=== PATIENT | female | born 1995 | race African-American/Black ===

== ENCOUNTER 2024-07-24 12:45 | Outpatient (CLI) | payer OTHER, SELFPAY ==
--- NOTE | ~2024-07-24 | US_ITS ---
Pelvic ultrasound. Clinical History: First trimester , establish dates and viability Technique: Realtime transabdominal and transvaginal scanning of the pelvis was performed. Color flow Doppler and Doppler spectral analysis were performed. Findings: The uterus is anteverted, and contains an intrauterine gestation. [place]-rump length of 2.5 cm corresponds to an estimated gestational age of 9 weeks 2 days. heart rate is 167 bpm. Neither ovary seen. No adnexal mass seen. There is no evidence of free fluid in the cul de sac. Impression: Live intrauterine gestation, with estimated gestational age of 9 weeks 2 days. heart rate is 16 7 bpm. Sonographic EVI is 02/24/2025. Reviewed, dictated and finalized at location . H POLISHER Impression: Live intrauterine gestation, with estimated gestational age of 9 weeks 2 days. heart rate is 167 bpm. Sonographic EVI is 02/24/2025.
== END 2024-07-24 12:46 | disposition home or self-care (01) ==
LOC: MICIMG 12:46
PROVIDERS: PCP Nurse Practitioner Women's Health; Visit Provider Nurse Practitioner Women's Health
DX: O36.80X0 Pregnancy with inconclusive fetal viability, not applicable or unspecified (principal); Z3A.09 9 weeks gestation of pregnancy
CPT/HCPCS: 76801

== ENCOUNTER 2024-10-09 11:04 | Outpatient (CLI) | payer OTHER, SELFPAY ==
--- NOTE | ~2024-10-09 | US_ITS ---
EXAMINATION: US OB /maternal detail DATE: 10/09/2024 11:57 INDICATION: survey TECHNIQUE: Multiple obstetric sonographic images performed. FINDINGS: No prior studies for comparison. There is a single living fetus in variable presentation. The placenta is posterior without placenta previa. Placental margin to the cervix is 3.3 cm. Amniotic fluid volume is subjectively normal cardiac activity and movement is noted with a heart rate of 133 beats per minute. The following anatomy was identified as normal: 4 chamber heart 3 vessel cord cord insertion kidneys urinary bladder stomach spine diaphragm ventricles cisterna magna cerebellum The following biometric data were obtained: BPD: 48mm corresponds to gestational age 20 weeks 3 days. Head circumference: 180 mm corresponds to gestational age 20 weeks 3 days. Abdominal circumference: 159 mm corresponds to gestational age 21 weeks 0 days. Femur length: 34 mm corresponds to gestational age 20 weeks 6 days. Head circumference to abdominal circumference ratio: 1.13 (normal range for expected gestational age is 1.06-1.25). Estimated weight: 383 grams +/- 57 grams using Hadlock method, 77.9%. IMPRESSION: 1: Single living intrauterine with an estimated gestational age of 20weeks 2days by initial ultrasound measurements, with an EDC of 02/24/2025 in variable presentation. Appropriate interval fet al growth. 2. Normal survey. Reviewed, dictated and finalized at location A. IMPRESSION: 1: Single living intrauterine with an estimated gestational age of 20 weeks 2days by initial ultrasound measurements, with an EDC of 02/24/2025 in juanjose iable presentation. Appropriate interval growth. 2. Normal survey.
== END 2024-10-09 11:05 | disposition home or self-care (01) ==
LOC: MICIMG 11:06
PROVIDERS: PCP Obstetrics & Gynecology Gynecology; Visit Provider Obstetrics & Gynecology Gynecology
DX: Z36.2 Encounter for other antenatal screening follow-up (principal); Z3A.20 20 weeks gestation of pregnancy
CPT/HCPCS: 76805

== ENCOUNTER 2024-12-27 09:43 | Outpatient (CLI) | payer OTHER, SELFPAY ==
--- NOTE | ~2024-12-27 | US_ITS ---
EXAMINATION: US OB follow up DATE: 12/27/2024 10:22 INDICATION: Size greater than dates. TECHNIQUE: Real-time transabdominal obstetric ultrasound. FINDINGS: Comparison to prior ultrasounds dated 10/09/2024 and 07/24/2024 There is a single living fetus in vertex presentation. The placenta is posterior without placenta pr evia. cardiac activity and movement is noted with a heart rate of 151 beats per minute. T he amniotic fluid volume is normal. THERESE measures 18.5 cm. The following biometric data were obtained: BPD: 82mm corresponds to gestational age 32 weeks 5 days. Head circumference: 292mm corresponds to gestational age 32 weeks 1 days. Abdominal circumference: 282mm corresponds to gestational age 32 weeks 1 days. Femur length: 62mm corresponds to gestational age 32 weeks 2 days. Estimated weight: 1942grams +/- 291grams 62.7%. IMPRESSION: 1. Single living intrauterine in vertex presentation with an estimated gestational age of 31 weeks 4 days by inititial ultrasound. Appropriate interval growth. 2. Normal placenta. Reviewed, dictated and finalized at location A. IMPRESSION: 1. Single living intrauterine in vertex presentation with an estimat ed gestational age of 31 weeks 4 days by inititial ultrasound. Appropriate int erval growth. 2. Normal placenta.
== END 2024-12-27 09:44 | disposition home or self-care (01) ==
LOC: MICIMG 09:43
PROVIDERS: PCP Obstetrics & Gynecology Gynecology; Visit Provider Obstetrics & Gynecology Gynecology
DX: O36.63X0 Maternal care for excessive fetal growth, third trimester, not applicable or unspecified (principal); Z3A.31 31 weeks gestation of pregnancy
CPT/HCPCS: 76816

== ENCOUNTER 2025-01-29 13:19 | Outpatient (CLI) | payer OTHER, SELFPAY ==
--- NOTE | ~2025-01-29 | US_ITS ---
EXAMINATION: US OB follow up DATE: 01/29/2025 13:43 INDICATION: Size greater than dates. TECHNIQUE: Real-time transabdominal obstetric ultrasound. FINDINGS: Comparison to multiple prior studies sequentially, with oldest reviewed study dated 07/24/2024. There is a single living fetus in vertex presentation. The placenta is fundal without placenta previa. cardiac activity and movement is noted with a heart rate of 147 beats per minute. The amniotic fluid volume is normal. THERESE measures 15.1 cm The following biometric data were obtained: BPD: 89mm corresponds to gestational age 36 weeks 1 days. Head circumference: 320mm corresponds to gestational age 36 weeks 1 days. Abdominal circumference: 333mm corresponds to gestational age 37 weeks 1 days. Femur length: 71mm corresponds to gestational age 36 weeks 2 days. Estimated weight: 3017grams +/- 452grams, 65.1%.] IMPRESSION: 1. Single living intrauterine in vertex presentation with an estimated gestational age of 36 weeks 2 days by inititial ultrasound. Appropriate interval growth. 2. Normal placenta. 3: Normal THERESE measures 15.1 cm. Reviewed, dictated and finalized at location O. IMPRESSION: 1. Single living intrauterine in vertex presentation with an estimat ed gestational age of 36 weeks 2 days by inititial ultrasound. Appropriate int erval growth. 2. Normal placenta. 3: Normal THERESE measures 15.1 cm.
== END 2025-01-29 13:20 | disposition home or self-care (01) ==
LOC: MICIMG 13:20
PROVIDERS: PCP Internal Medicine; Visit Provider Nurse Practitioner
DX: O36.63X0 Maternal care for excessive fetal growth, third trimester, not applicable or unspecified (principal); Z3A.36 36 weeks gestation of pregnancy
CPT/HCPCS: 76816

== ENCOUNTER 2025-02-15 13:00 | Inpatient (IN) | payer OTHER, SELFPAY ==
[2025-02-15] VITALS (143 sets, daily range): BP systolic 67–149; BP diastolic 15–112; PULSE 76–246; RESP 18; TEMP 36.5–37.5; O2SAT 63–100; BMI 38.2
[2025-02-15] MEDS: ONDANSETRON INJ 4 MG/2 ML VIAL IV PUSH (15:57)
[2025-02-15 15:58] LABS: Hematocrit 39.2 % (37.0-47.0); Hemoglobin 13.4 g/dL (12.0-15.0); Immature Granulocyte Percent A 0.8 % (0-0.5); Lymphocytes Absolute Auto 1.86 K/mm3 (0.9-3.2); Mean Corpuscular HGB Conc 34.2 g/dl (32-36); Mean Corpuscular Hemoglobin 30.5 pg (26-34); Mean Corpuscular Volume 89.1 fl (80-100); Nucleated Red Blood Cells Absolute Auto 0.000 K/mm3 (0.0-0.012); Nucleated Red Blood Cells Perc 0.0 % (0.0-0.2); Platelet Count Result 209 k/mm3 (150-375); Red Blood Count 4.40 M/mm3 (4.2-5.4); White Blood Count 11.6 K/mm3 (4.5-10.0)
[2025-02-15] MEDS: fentaNYL CITRATE INJ (*CRX) 100 MCG/2 ML VIAL IV PUSH (16:00)
[2025-02-15] MEDS: LACTATED RINGERS 1,000 ML 125 ML IV CONT ×3 (16:04→18:14)
--- NOTE | 2025-02-15 16:09 | LDADM ---
This patient, Gayathri Mendoza , was admitted to Labor/Delivery/Recovery 106 on 02/15/25 at 13:00. Plans for labor, pain management and were discussed with patient. Patient/family oriented to hospital policies and general routines including ID bracelet, bed and alarms, visiting hours, pain management, procedures, bathroom and other care routines, personal items, smoking policy, room service/diet and guest tray routines, security routines, and visiting hours. Patient/Family are encouraged to report perceived risks to care and to ask questions if they do not understand what they are told or what they should do. See OBIX for further documentation.
[2025-02-15 16:36] LABS: Syphilis IgG/IgM Antibody Non-Reactive (Nonreactive)
--- NOTE | 2025-02-15 16:45 | P.PNAN_ITS ---
Anes - Eval Pre Procedure Procedure: labor pain management Date/Time: 02/15/25 16:45 Surgeon: Selina/Ramakrishna Churchill Preop Diagnosis: pain during labor Pre Op Diagnosis: Labor Patient Data Age: 29 Gender: F Height: 1.57 m Weight: 95 kg Last Vital Signs O2 Del Method Room Air 02/15/25 16:07 Allergies Allergy/AdvReac Type Severity Reaction Status Date / Time No Known Allergies Allergy Verified 01/29/25 11:10 Home Medications ?Medication ?Instructions ?Recorded ?Confirmed ?Type ferrous sulfate 325 mg (65 mg 325 mg PO DAILY 01/07/25 01/26/25 History iron) tablet (Feosol) Held on 01/26/25. Instructions: Order Change vit no.95-ferrous 1 tablet PO DAILY 01/07/25 01/26/25 History fumarate 28 mg-folic acid 800 mcg tablet ( Formula) Laboratory Tests 02/15/25 15:41 WBC 11.6 H K/mm3 (4.5-10.0) RBC 4.40 M/mm3 (4.2-5.4) Hgb 13.4 g/dL (12.0-15.0) Hct 39.2 % (37.0-47.0) MCV 89.1 fl (80-100) MCH 30.5 pg (26-34) MCHC 34.2 g/dl (32-36) RDW 13.3 % (11.5-14.5) Plt Count 209 k/mm3 (150-375) MPV 10.9 H fl (7.4-10.4) Immature Gran % (Auto) 0.8 H % (0-0.5) Neut % (Auto) 79.9 H % (45.5-73.1) Lymph % (Auto) 16.0 L % (18.3-44.2) Price % (Auto) 2.9 % (2.6-8.5) Eos % (Auto) 0.1 % (0-4.4) Baso % (Auto) 0.3 % (0.2-1.2) Lymph # (Auto) 1.86 K/mm3 (0.9-3.2) Price # (Auto) 0.3 K/mm3 (0.1-0.6) Eos # (Auto) 0.0 K/mm3 (0-0.3) Baso # (Auto) 0.0 K/mm3 (0.0-0.1) Abs Immat Gran (auto) 0.09 H K/mm3 (0.00-0.031) Absolute Neuts (auto) 9.3 H K/mm3 (1.3-6.7) Absolute Nucleated RBC 0.000 K/mm3 (0.0-0.012) Nucleated RBC % 0.0 % (0.0-0.2) Syphilis IgG/IgM Ab Non-reactive (Nonreactive) Blood Type O Positive Antibody Screen Negative Patient hx anesthesia problems: none Family hx anesthesia problems: none Results Review: All pre-operative results and documents have been reviewed as part of the pre- operative evaluation. [facility] Family History Family History Mother Diabetes mellitus Sibling Diabetes mellitus Grandparent Diabetes mellitus Other Cancer Social History Social History Smoking status: Never smoker Substance use: never Lack of Transportation: No Lack of Food: Never True Current Housing: I Have Housing Concerned About Future Housing: No Difficulty Paying Gas/Electric Bills: No Difficulty Paying for Meds: No Currently Unemployed: No Education: Bachelor's Degree Difficulty w/ Childcare or Family Care: No Spiritual care concerns: No Exam Day of Procedure 02/15/25 16:45
--- NOTE | 2025-02-15 16:51 | PM.IMHP ---
H&P: HPI History of Present Illness Date/Time: 02/15/25 16:51 Chief Complaint: Labor at term Narrative: 29-year-old 1 para 0 whose last menstrual period gives an EDC of 02/24/2025 confirmed by 12 week ultrasound presents at 38 and half weeks gestation with active labor. Her has been uncomplicated she does suffer from aspect but has not been hospitalized she is negative for group B strep and had a diabetic screen Review of Systems Review of Systems: All systems reviewed & are unremarkable except as noted in HPI and below PMFSH Family History Family History Mother Diabetes mellitus Sibling Diabetes mellitus Grandparent Diabetes mellitus Other Cancer Social History Social History Smoking status: Never smoker Substance use: never Lack of Transportation: No Lack of Food: Never True Current Housing: I Have Housing Concerned About Future Housing: No Difficulty Paying Gas/Electric Bills: No Difficulty Paying for Meds: No Currently Unemployed: No Education: Bachelor's Degree Difficulty w/ Childcare or Family Care: No Spiritual care concerns: No Meds Home Medications and Allergies Home Medications ?Medication ?Instructions ?Recorded ?Confirmed ?Type ferrous sulfate 325 mg (65 mg 325 mg PO DAILY 01/07/25 01/26/25 History iron) tablet (Feosol) Held on 01/26/25. Instructions: Order Change vit no.95-ferrous 1 tablet PO DAILY 01/07/25 01/26/25 History fumarate 28 mg-folic acid 800 mcg tablet ( Formula) Allergies Allergy/AdvReac Type Severity Reaction Status Date / Time No Known Allergies Allergy Verified 01/29/25 11:10 Vital Signs Vital Signs - 24 hr 02/15/25 16:07 02/15/25 16:49 Pulse Rate 83 Blood Pressure 134/81 Pulse Oximetry 96 Oxygen Delivery Room Air Exam Const: General: cooperative, healthy appearing and comfortable Nutritional Appearance: average body habitus Orientation/consciousness: oriented to person, oriented to place and oriented to time HENMT: Head: normal to inspection Resp: Effort & Inspection: normal respiratory effort Cardio: Rate: regular rate Rhythm: regular rhythm Heart sounds: S1 normal heart sound present and S2 normal heart sound present GI: Inspection: normal to inspection (Gravid soft uterus) : External Female Exam: normal external appearance Speculum Exam - Vagina: normal appearance of the vagina Speculum Exam - Cervix: normal appearance of the cervix (Cervix 4/100/2. AROM with meconium. FHTs reassuring) H&P: Results Labs Labs: Short CBC 02/15/25 Range/Units 15:41 WBC 11.6 H (4.5-10.0) K/mm3 Hgb 13.4 (12.0-15.0) g/dL Hct 39.2 (37.0-47.0) % Plt Count 209 (150-375) k/mm3 Assessment and Plan Assessment and plan (1) Term : Code(s): Z34.90 - Encounter for supervision of normal , unspecified, unspecified trimester Status: Acute (2) Anemia affecting : Code(s): O99.019 - Anemia complicating , unspecified trimester Status: Acute Plan Spontaneous vaginal delivery is expected. Epidural anesthesia will be placed. Meconium fluid will be addressed by construction ironworker helper
[2025-02-15] MEDS: PHENYLEPHRINE 1,000 MCG/10 ML SYRINGE 100 MCG IV PUSH ×4 (17:45→18:05)
[2025-02-15] MEDS: OXYTOCIN 30 UNITS/NS 500 ML 30 UNITS/500 ML BAG 999 UNITS IV CONT (21:53)
--- NOTE | 2025-02-15 22:08 | PM.OBPRVD ---
OB - Vaginal Delivery Note Procedure Delivery date: 02/15/25 Induction method: None Delivery augmentation: Rupture of Membranes and Pitocin Delivery monitor: External FHT and External Uterine Route of delivery: Episiotomy description: None Laceration Description: Perineal - 2nd Degree Delivery repair: vicryl Specimen: No Quantitative Blood Loss (ml): 62 Anesthesia type: Epidural Disposition: Floor Complications: No immediate complications Narrative: Patient was admitted at38+ weeks gestation in active labor artificial rupture of membranes was performed the afternoon epidural anesthesia placed she progressed to complete meconium fluid been noted and quality assurance auditor was made aware she pushed delivered the head spontaneously in the MANOJ position anterior posterior shoulder then delivered spontaneously. Cord clamped x2 and cut infant passed off the table with an excellent cry. Placenta delivered intact spontaneously. Twenty of Pitocin placed IV to help firm the uterus after inspecting the vagina small second-degree laceration was noted and this was closed with layered 3-0 Vicryl QBL was 62cc. All sponge, needle, instrument counts were correct. There were no immediate complications [place] Baby Date of : 02/15/25 Time of : 21:53 Gestational Age by Date: 38 gender: Male Weight (pounds): 8 Weight (ounces): 9 position: Right Occiput Anterior Placenta delivery description: Spontaneous Cord Vessel Description: 3 Vessels
--- NOTE | 2025-02-15 22:11 | P.DS_ITS ---
DS: Admitting Diagnosis Discharge Date 02/17/2025 Admitting Diagnosis Term DS: Discharge Diagnosis Discharge Diagnosis (1) Anemia affecting : Code(s): O99.019 - Anemia complicating , unspecified trimester Status: Acute (2) Term : Code(s): Z34.90 - Encounter for supervision of normal , unspecified, unspecified trimester Status: Acute DS: Summary Hospital Course Reason for hospitalization: Patient was admitted on 02/15/2025 and underwent spontaneous vaginal delivery under epidural anesthesia Hospital Course: Patient's hospital course unremarkable. She remained afebrile. She was up, voiding without difficulty, eating regular diet, ambulating, and generally without complaints. Time Spent with Patient Time attestation: Total time spent providing and/or coordinating discharge services: Exam Const: General: cooperative, healthy appearing and comfortable Nutritional Appearance: average body habitus Orientation/consciousness: oriented to person, oriented to place and oriented to time HENMT: Head: normal to inspection Resp: Effort & Inspection: normal respiratory effort Cardio: Rate: regular rate Rhythm: regular rhythm Heart sounds: S1 normal heart sound present and S2 normal heart sound present GI: Inspection: normal to inspection (Gravid soft uterus) : External Female Exam: normal external appearance Speculum Exam - Vagina: normal appearance of the vagina Speculum Exam - Cervix: normal appearance of the cervix (Cervix 4/100/2. AROM with meconium. FHTs reassuring) DS: Data Data Completed and Pending Labs on day of discharge: Labs from last 24 hours 02/15/25 15:41 WBC 11.6 H RBC 4.40 Hgb 13.4 Hct 39.2 MCV 89.1 MCH 30.5 MCHC 34.2 RDW 13.3 Plt Count 209 MPV 10.9 H Immature Gran % (Auto) 0.8 H Neut % (Auto) 79.9 H Lymph % (Auto) 16.0 L [place] % (Auto) 2.9 Eos % (Auto) 0.1 Baso % (Auto) 0.3 Lymph # (Auto) 1.86 [place] # (Auto) 0.3 Eos # (Auto) 0.0 Baso # (Auto) 0.0 Abs Immat Gran (auto) 0.09 H Absolute Neuts (auto) 9.3 H Absolute Nucleated RBC 0.000 Nucleated RBC % 0.0 Syphilis IgG/IgM Ab Non-reactive Blood Type O Positive Antibody Screen Negative Discharge Plan Discharge Attending physician on discharge: Alphonse Riggins Discharging Clinician: Alphonse Riggins Patient Disposition: Home Activity: may shower, no straining and pelvic rest Diet: heart healthy Wound Care Instructions: follow printed instructions Patient Instructions: Antibiotic Form Patient Language: Slovak Stand Alone Forms: General Discharge Information Follow-up/Referrals: Nidhi Marks MD [Physician, ENVIRONMENTAL PROGRAMS MANAGER] Discharge Medications: Continued PNV no.95-ferrous fumarate-FA [ Formula] 28 mg iron- 800 mcg tablet 1 tablet PO DAILY Patient Comments: . ferrous sulfate [Feosol] 325 mg (65 mg iron) tablet 325 mg PO DAILY Patient Comments: .. Rx Instructions: on hold while getting infusions. Date of admission: 02/15/25 13:00 Primary Care Provider: Quan,Eran ([facility]) Admitting Provider: Nidhi Marks Attending physician on admission: Nidhi Marks Condition: Stable
[2025-02-15] MEDS: OXYTOCIN 30 UNITS/NS 500 ML 30 UNITS/500 ML BAG 125 UNITS IV CONT (22:28)
[2025-02-16] VITALS (11 sets, daily range): BP systolic 114–125; BP diastolic 53–73; PULSE 72–106; RESP 14–16; TEMP 36.8–37.1; O2SAT 97–100
[2025-02-16] MEDS: ACETAMINOPHEN 325 MG TABLET 650 MG PO ×3 (00:54→18:54)
[2025-02-16] MEDS: IBUPROFEN 600 MG TABLET PO ×4 (00:55→20:44)
--- NOTE | 2025-02-16 01:15 | OBPPTRN ---
0025 on 02/16/2025 Patient transferred to post room #112 via wheelchair. Support person present. Patient and her significant other were oriented to unit, room, information board, rooming in, admission packet and security measures. Patient verbalizes understanding.
[2025-02-16 05:26] LABS: Hematocrit 29.1 % (37.0-47.0); Hemoglobin 9.9 g/dL (12.0-15.0)
[2025-02-16] MEDS: MULTIVIT/MIN/PREN/FOL AC/IRON TABLET 1 TAB PO (08:06)
[2025-02-16] MEDS: DOCUSATE SODIUM 100 MG CAPSULE PO ×2 (08:06→17:27)
--- NOTE | 2025-02-16 08:40 | P.PNOB_ITS ---
OB - PN: Subj Subjective Date/time seen: 02/16/25 08:40 Patient comments: no complaints, pain well controlled and tolerating diet [place] baby status: doing well and nursing well OB - PN: Obj Data Labs 02/16/25 05:01 Labs: Laboratory Results - last 24 hr 02/15/25 02/16/25 15:41 05:01 WBC 11.6 H RBC 4.40 Hgb 13.4 9.9 L D Hct 39.2 29.1 L MCV 89.1 MCH 30.5 MCHC 34.2 RDW 13.3 Plt Count 209 MPV 10.9 H Immature Gran % (Auto) 0.8 H Neut % (Auto) 79.9 H Lymph % (Auto) 16.0 L [place] % (Auto) 2.9 Eos % (Auto) 0.1 Baso % (Auto) 0.3 Lymph # (Auto) 1.86 [place] # (Auto) 0.3 Eos # (Auto) 0.0 Baso # (Auto) 0.0 Abs Immat Gran (auto) 0.09 H Absolute Neuts (auto) 9.3 H Absolute Nucleated RBC 0.000 Nucleated RBC % 0.0 Syphilis IgG/IgM Ab Non-reactive Blood Type O Positive Antibody Screen Negative OB - PN A/P Assessment and Plan (1) Anemia affecting : Code(s): O99.019 - Anemia complicating , unspecified trimester Status: Acute (2) Term : Code(s): Z34.90 - Encounter for supervision of normal , unspecified, unspecified trimester Status: Acute Plan routine care Time Spent With Patient Time: Total time spent is greater than 50% in coordination of care (as documented) at patient's floor/unit and/or counseling patient: Review of Systems 2 Review of Systems: All systems reviewed & are unremarkable except as noted in HPI and below Exam 2 Const: General: cooperative, healthy appearing and comfortable Nutritional Appearance: average body habitus Orientation/consciousness: oriented to person, oriented to place and oriented to time HENMT: Head: normal to inspection Resp: Effort & Inspection: normal respiratory effort Cardio: Rate: regular rate Rhythm: regular rhythm Heart sounds: S1 normal heart sound present and S2 normal heart sound present GI: Inspection: normal to inspection (Gravid soft uterus) : External Female Exam: normal external appearance Speculum Exam - Vagina: normal appearance of the vagina Speculum Exam - Cervix: normal appearance of the cervix (Cervix 4/100/2. AROM with meconium. FHTs reassuring)
--- NOTE | 2025-02-16 17:31 | PC.NURSE ---
1710. Nipple shield provided to mother due to difficulty latching and mom with flat nipples. Reviewed good handwashing, cleaning the nipple shield and the appropriate way to apply and use as a tool. Discussed with mom the nipple shield precautions, possible complications associated with the risks and benefits. Reviewed practicing with a nipple shield, then without and how to protect the milk supply and production. Mom and baby guide referred to as a resource for outpatient services, community resources and when to call a provider. Mom voiced understanding of the importance of hand expression, nipple stimulation and initiating a pumping schedule if continues to nurse with the shield. Reported to the Primary RN.
[2025-02-17] MEDS: ACETAMINOPHEN 325 MG TABLET 650 MG PO ×2 (03:07→10:52)
--- NOTE | 2025-02-17 05:09 | P.PNOB_ITS ---
OB - PN: Subj Subjective Date/time seen: 02/17/25 05:09 Patient comments: no complaints, pain well controlled and tolerating diet [place] baby status: doing well OB - PN: Obj Data Labs 02/16/25 05:01 Labs: Laboratory Results - last 24 hr 02/16/25 05:01 Hgb 9.9 L D Hct 29.1 L OB - PN A/P Assessment and Plan (1) Term : Code(s): Z34.90 - Encounter for supervision of normal , unspecified, unspecified trimester Status: Acute (2) Anemia affecting : Code(s): O99.019 - Anemia complicating , unspecified trimester Status: Acute Plan home Time Spent With Patient Time: Total time spent is greater than 50% in coordination of care (as documented) at patient's floor/unit and/or counseling patient: Review of Systems 2 Review of Systems: All systems reviewed & are unremarkable except as noted in HPI and below Exam 2 Const: General: cooperative, healthy appearing and comfortable Nutritional Appearance: average body habitus Orientation/consciousness: oriented to person, oriented to place and oriented to time HENMT: Head: normal to inspection Resp: Effort & Inspection: normal respiratory effort Cardio: Rate: regular rate Rhythm: regular rhythm Heart sounds: S1 normal heart sound present and S2 normal heart sound present GI: Inspection: normal to inspection (Gravid soft uterus) : External Female Exam: normal external appearance Speculum Exam - Vagina: normal appearance of the vagina Speculum Exam - Cervix: normal appearance of the cervix (Cervix 4/100/2. AROM with meconium. FHTs reassuring)
[2025-02-17] MEDS: IBUPROFEN 600 MG TABLET PO ×2 (05:20→14:42)
[2025-02-17 08:40] VITALS: BP 132/76; PULSE 70; RESP 16; TEMP 36.9; O2SAT 100
[2025-02-17] MEDS: DOCUSATE SODIUM 100 MG CAPSULE PO (08:45)
[2025-02-17] MEDS: MULTIVIT/MIN/PREN/FOL AC/IRON TABLET 1 TAB PO (08:45)
--- NOTE | 2025-02-17 09:05 | PC.NURSE ---
Consulted with mother concerning needs and she shared her ability to independently latch infant with the nipple shield (handout provided). She had a small amount of bleeding with the shield yesterday. Reinforced the need to keep baby latched deeply to the shield, with his chin on the breast. She should not see the shield tip sliding in and out of his mouth with suckling. Mother is feeding appropriately for growth of infant and understands stimulating infant to eat if needed. Reinforced understanding of milk production, importance of pumping while using the nipple shield, transition of milk, signs of adequate intake, transition of stool, mastitis, community resources (declines [facility] referral), and when to call a provider using the resource of the feeding sheet along with the mom and baby guide. She has her own Spectra breast pump and we measured her nipples at 20-22mm and recommended a 27-28mm flange, using the pump manual for guidance. Mother voiced understanding of the information shared, is confident to continue effectively her at home, when to call for assistance, denies any additional assistance or education at this time. Reported to the Primary RN.
--- NOTE | 2025-02-17 12:20 | PC.NURSE ---
Mother called out for assistance with collecting and feeding breast milk after pumping. She was educated on giving small amounts of colostrum safely with a syringe and is encouraged to call out for assistance as needed. She was able to collect a few milliliters and is advised to keep it at bedside and feed after the next . Infant is remaining under bili lights today but no supplementation with formula has been ordered at this time. Primary RN updated.
[2025-02-17] MEDS: WITCH HAZEL 40 PADS 1 PAD TOPICAL (14:42)
[2025-02-17] MEDS: BENZOCAINE 20% AER SPR (*SP) 56 GM CAN 1 SPRAY TOPICAL (14:42)
--- NOTE | 2025-02-17 18:00 | PC.NURSE ---
Patient discharged but is staying in the room as a NCB.
[2025-02-19 11:05] VITALS: BP 131/77; PULSE 67; RESP 18; TEMP 36.5; O2SAT 100
== END 2025-02-17 18:00 | disposition home or self-care (01) | DRG 807 ==
LOC: ANHOB2 02-18 10:20 → ANHOBPP 02-18 10:20 → ANHLDR 02-18 10:20
PROVIDERS: Admitting Provider Obstetrics & Gynecology; PCP Internal Medicine; Visit Provider Obstetrics & Gynecology
DX: O77.0 Labor and delivery complicated by meconium in amniotic fluid (principal); Z37.0 Single live birth; O99.02 Anemia complicating childbirth; D64.9 Anemia, unspecified; O70.1 Second degree perineal laceration during delivery; Z3A.38 38 weeks gestation of pregnancy
CPT/HCPCS: 36415; 85014; 85018; 85025; 86593; 86850; 86900; 86901; A9270; J2371; J2405; J2590; J2795; J3010; J7120